=== PATIENT | female | born 1990 | race Caucasian/White ===

== ENCOUNTER 2017-08-30 10:48 | Emergency (ER) | payer OTHER ==
[~2017-08-30] VITALS: Ht 167.6 cm; Wt 69.4 kg
[2017-08-30] MEDS ORDERED: METH10 PO (10:56)
[2017-08-30] MEDS ORDERED: LIDOCAINE HCL 1% 10 ML VIAL INJ ONE (11:30)
[2017-08-30] MEDS ORDERED: PERTUSS(ACELL),DIPH,TET VAC/PF 0.5 ML VIAL IM ONE (11:45)
[2017-08-30] MEDS ORDERED: ACETAMINOPHEN 500 MG TABLET PO ONE (12:00)
[2017-08-30 12:20] VITALS: BP 165/74
[2017-08-30] MEDS ORDERED: BACITRACIN 0.9 GM PACKET OINTMENT TP ONE (12:45)
== END 2017-08-30 13:47 | disposition home or self-care (01) ==
LOC: EMS 10:50
DX: S01.01XA Laceration without foreign body of scalp, initial encounter (principal); F11.10 Opioid abuse, uncomplicated; V29.9XXA Motorcycle rider (driver) (passenger) injured in unspecified traffic accident, initial encounter; Y93.55 Activity, bike riding; Y92.89 Other specified places as the place of occurrence of the external cause; Y99.8 Other external cause status
CPT/HCPCS: 12002; 70450; 90471; 90715; 99284; J3490

== ENCOUNTER 2017-10-02 05:23 | Emergency (ER) | payer OTHER ==
[~2017-10-02] VITALS: Ht 167.6 cm; Wt 69.0 kg
[~2017-10-02 05:23] MED LIST: METH10 PO
[2017-10-02] MEDS ORDERED: METH10 PO (05:42)
[2017-10-02] MEDS ORDERED: LIDOCAINE HCL 5% TRANSDERMAL PATCH TD ONE (07:15)
[2017-10-02] MEDS ORDERED: IBUPROFEN 800 MG TABLET PO ONE (07:15)
[2017-10-02] MEDS ORDERED: CYCLOBENZAPRINE HCL 10 MG TABLET PO ONE (07:15)
[2017-10-02 10:32] VITALS: BP 112/53
== END 2017-10-02 11:00 | disposition home or self-care (01) ==
LOC: EMS 05:23
DX: M54.5 Low back pain (principal)
CPT/HCPCS: 99284